=== PATIENT | male | born 1990 | race African-American/Black ===

== ENCOUNTER 2021-08-05 23:06 | Emergency (ER) | payer BC, MEDICAID ==
[~2021-08-05] VITALS: Ht 188 cm; Wt 98.2 kg
[2021-08-06] MEDS ORDERED: KETOROLAC 60MG/2ML VIAL IM ONE (01:15)
[2021-08-06 01:19] VITALS: BP 123/88
[2021-08-06] MEDS ORDERED: NAPR-681 MT (03:01)
== END 2021-08-06 03:24 | disposition home or self-care (01) ==
LOC: ER 23:06
DX: R07.81 Pleurodynia (principal)
CPT/HCPCS: 71101; 96372; 99283; J1885